=== PATIENT | male | born 1965 | race Caucasian/White ===

== ENCOUNTER 2025-09-21 07:31 | Day surgery (SDC) | payer BC ==
[~2025-09-21] VITALS: Ht 162.6 cm; Wt 95.2 kg
[~2025-09-21 07:31] MED LIST: ZYRTEC10 M2 PO
[2025-09-21] MEDS ORDERED: ATOR20 (07:40)
[2025-09-21] MEDS ORDERED: LOSA50 (07:40)
[2025-09-21 10:14] VITALS: BP 140/93
== END 2025-09-21 10:14 | disposition home or self-care (01) ==
LOC: ORSCSDS 07:31
PROVIDERS: Internal Medicine Gastroenterology
PROC: 0DBK8ZX Excision of Ascending Colon, Via Natural or Artificial Opening Endoscopic, Diagnostic (ICD-10-PCS; principal; 2025-09-21 09:15)
PROC: 0DBM8ZX Excision of Descending Colon, Via Natural or Artificial Opening Endoscopic, Diagnostic (ICD-10-PCS; principal; 2025-09-21 09:15)
PROC: 0DBL8ZX Excision of Transverse Colon, Via Natural or Artificial Opening Endoscopic, Diagnostic (ICD-10-PCS; principal; 2025-09-21 09:15)
DX: Z12.11 Encounter for screening for malignant neoplasm of colon (principal); R19.5 Other fecal abnormalities; D12.3 Benign neoplasm of transverse colon; D12.2 Benign neoplasm of ascending colon; D12.4 Benign neoplasm of descending colon; K57.30 Diverticulosis of large intestine without perforation or abscess without bleeding; K21.9 Gastro-esophageal reflux disease without esophagitis; E66.9 Obesity, unspecified; Z68.36 Body mass index [BMI] 36.0-36.9, adult
CPT/HCPCS: 88305; J2704; J7120